=== PATIENT | male | born 1980 | race Caucasian/White ===

== ENCOUNTER → 2017-11-19 | Day surgery (SDC) | payer OTHER ==
[~2017-11-19] VITALS: Ht 154.9 cm; Wt 102.1 kg
--- NOTE | 2017-11-19 12:37 | Operative Report ---
Operative/Inv Procedure Report Surgery Date: 11/19/17 Name of Procedure: Right hip arthroscopy, labral repair, femoroplasty, acetabuloplasty, microfracture acetabulum Pre-Operative Diagnosis: Right hip labral tear Post-Operative Diagnosis: Right hip labral tear Estimated Blood Loss: scant Surgeon/Audio/Visual Manager: Billy DOUGLAS,CHRISTINE Saravia Anesthesia: general endotracheal tube Complications: None Condition: Stable to PACU Operative Indication: This is a 37-year-old male with long-standing right hip pain. He has failed conservative care. MRI showed a labral tear. Risks and benefits of the procedure were discussed with the patient at length. Risks include but are not limited to nerve damage, muscle damage, infection, blood loss, blood clots, pulmonary embolus, and even . The patient agreed to the above risks and elected to proceed with surgery. Operative/Procedure Note Note: The patient was taken to the operating room and placed supine on the operating room table. General anesthesia was induced by the anesthesia team. The patient received IV antibiotics prior to incision. A timeout was performed prior to incision. The site marking was visualized prior to the incision. The patient was positioned on the hip table and the perineum was positioned up against a well-padded post. X-rays were taken to ensure adequate positioning and distraction of the extremity. The hip was prepped and draped in the normal sterile fashion. Traction was then applied. A spinal needle was used to enter the hip joint under x-ray guidance in the lateral portal position just anterior to the greater trochanter. An air arthrogram was established. The hip joint was insufflated with saline. The spinal needle was removed from the hip joint. This allowed the spinal needle to be reinserted through the capsule while avoiding the labrum. A wire was then inserted through the spinal needle. Over the wire a cannula was inserted. The scope was then inserted and under direct visualization an anterolateral portal was then established with a spinal needle. This was made just lateral to a sagittal line drawn down from the ASIS. A [place] blade was then inserted and a capsulotomy was performed connecting the 2 portals. The capsule was debrided with a shaver. Any bleeding vessels were identified and cauterized. The diagnostic arthroscopy was then performed which showed the above findings. A [place] blade was then inserted and the labrum was further let down from the acetabular rim. The shaver was used to debride the soft tissue deep to the labrum and to expose the bony acetabulum. A switching stick was then inserted and the bur was assembled over the switching stick. The bur was then used to perform the acetabuloplasty. The bony resection started centrally at the superior acetabulum and then was tapered medially and laterally. This was performed to create a smooth, normal acetabular transition. Care was taken to protect the labrum during bony resection. X-rays were taken to ensure adequate bony resection. A ring curet was then used to remove the calcified cartilage goods layer of the grade 4 chondral defect. A 60 microfracture pick was then used to create multiple microfracture punctures in the acetabulum. Next the acetabulum was drilled to place an anchor. The drill guide was used to drill while the chondral surface was visualized to ensure no violation of the chondral surface occurred. The anchor was then placed. The arthro-[place] was then used to shuttle the suture. This was then tied down with a locking knot and several half hitches. The excess suture was cut. This process was repeated. A total of three 1.8 mm Qfix mini anchors were placed. The labrum was then probed and noted to be quite stable. This was then further stabilized with an RF device. The traction was then let down and the hip was flexed up to 45 degrees. The 30 degree scope was then used. A more proximal portal was established with a spinal needle just proximal to the greater trochanter. A spinal needle was inserted and a wire was then shuttled through the spinal needle. An 11 blade was used to incise a skin. A dilator was then placed over the wire. The soft tissue off the superior aspect of the femoral head neck junction was then taken down. The bur was then inserted and the femoroplasty was begun proximally. X- rays were taken to ensure adequate bony resection. The camera and the bur were then switched and further femoroplasty was begun to ensure a smooth normal transition from the femoral head down to the neck. Final x-rays were taken to ensure adequate femoroplasty. The hip joint was copiously irrigated. All instruments were removed. The portal sites were closed with 3-0 nylon suture in a simple interrupted fashion and the hip joint was insufflated with 20 mL of 0.25% percent [place]. A dry sterile dressing was applied and the patient was transferred to PACU in stable condition. Findings: Torn anterosuperior labrum. Posterior labrum intact. Unstable chondral flap of the posterior superior acetabulum with a grade 4 chondral defect present. Femoral head articular cartilage intact. Large cam lesion present. Synovial herniation pit noted at the femoral head neck junction. Small pincer lesion present. No loose bodies noted. Ligamentum teres intact.
--- NOTE | 2017-11-20 10:19 | RADIOLOGY REPORT ---
EXAMINATION: XR HIP, RIGHT CLINICAL INFORMATION: Right hip arthroscopy. COMPARISON: None TECHNIQUE AND FINDINGS: Fluoroscopic assistance is provided at the time of the right hip arthroscopy. Five spot radiographs were obtained at the time of the procedure. Full procedural detail and findings will be dictated by Dr. Cervantes. Fluoroscopy Time: 50 seconds. IMPRESSION: Fluoroscopic assistance is provided at the time of the right hip arthroscopy. Full procedural detail and findings will be dictated by Dr. Cervantes.
== END ==
LOC: STS 01:44
DX: M25.851 Other specified joint disorders, right hip (principal)
CPT/HCPCS: 73501; J0171; J0690; J2250